=== PATIENT | male | born 1970 | race Caucasian/White ===

== ENCOUNTER 2019-04-08 18:43 | Emergency (ER) | payer SELFPAY ==
[~2019-04-08] VITALS: Ht 177.8 cm; Wt 93.0 kg
[2019-04-08] MEDS ORDERED: HYZAAR1 TA1 PO ×2 (19:09→19:11)
[2019-04-08] MEDS ORDERED: IBUPROFEN600 MG PO (20:51)
[2019-04-08 21:24] VITALS: BP 150/79
== END 2019-04-08 21:18 | disposition home or self-care (01) | DRG 563 ==
LOC: ED 18:43
PROC: 2W3QX1Z Immobilization of Right Lower Leg using Splint (ICD-10-PCS; principal; 2019-04-08)
DX: S82.851A Displaced trimalleolar fracture of right lower leg, initial encounter for closed fracture (principal); I10 Essential (primary) hypertension; W16.622A Jumping or diving into natural body of water striking bottom causing other injury, initial encounter; Y93.89 Activity, other specified; Y92.833 Campsite as the place of occurrence of the external cause